=== PATIENT | male | born 1950 | race Caucasian/White ===

== ENCOUNTER 2016-09-08 05:34 | Day surgery (SDC) | payer MEDICARE, OTHER ==
[2016-09-06 17:03] LABS: BASOPHILS 1.1 %; BASOPHILS ABSOLUTE 0.09 10/3/uL (0.0-0.16); EOSINOPHILS 5.1 %; EOSINOPHILS ABSOLUTE 0.43 10/3/uL (0.0-0.53); IMMATURE GRANULOCYTES 0.2 %; IMMATURE GRANULOCYTES ABSOLUTE 0.02 10/3/uL (0.0-0.11); LYMPHOCYTES 31.1 %; LYMPHOCYTES ABSOLUTE 2.65 10/3/uL (0.67-4.30); MEAN CORPUS HGB CONC 32.6 g/dL (32.0-36.0); MEAN CORPUSCULAR HEMOGLOB 31.1 pg (26.0-34.0); MEAN PLATELET VOLUME 10.2 fL (9.2-13.0); MONOCYTES 9.3 %; MONOCYTES ABSOLUTE 0.79 10/3/uL (0.21-1.20); NEUTROPHILS 53.2 %; NEUTROPHILS ABSOLUTE 4.53 10/3/uL (2.02-8.40); PLATELET COUNT 197 10/3/uL (150-400); WHITE BLOOD CELLS 8.5 10/3/uL (4.5-10.5)
[2016-09-06 17:04] LABS: HEMATOCRIT 43.5 % (40.0-51.0); HEMOGLOBIN 14.2 g/dL (13.6-17.8); MANUAL DIFF NO %; MEAN CORPUSCULAR VOLUME 95.4 fL (80-100); RED CELL COUNT 4.56 10/6/uL (4.7-6.1)
[2016-09-06 17:09] LABS: INTERNATIONAL NORMAL RATI 1.5 UNITS (-)
[2016-09-06 17:16] LABS: A/G RATIO 1.2 (0.7-1.9); ALBUMIN 3.8 G/DL (3.5-5.0); ALKALINE PHOSPHATASE 71 U/L (45-117); BUN (BLOOD UREA NITROGEN) 60 MG/DL (6-23); CALCIUM, SERUM 8.7 MG/DL (8.5-10.4); CHLORIDE, SERUM 104 MMOL/L (96-112); CO2 (CARBON DIOXIDE) 26 MMOL/L (24-34); CREATININE 3.74 MG/DL (0.70-1.30); GFR AFRICAN AMERICAN 18 ML/MIN (>=60); GFR NON AFRICAN AMERICAN 16 ML/MIN (>=60); GLOBULIN 3.3 G/DL (2.5-4.1); GLUCOSE, SERUM 91 MG/DL (60-99); POTASSIUM, SERUM 4.2 MMOL/L (3.5-5.3); SGOT(AST) 21 U/L (5-40); SGPT(ALT) 25 U/L (5-65); SODIUM, SERUM 140 MMOL/L (135-148); TOTAL BILIRUBIN 0.3 MG/DL (0-1.2); TOTAL PROTEIN 7.1 G/DL (6.0-8.5)
[2016-09-06 17:32] LABS: ASCORBIC ACID (UR NOT ORDER) NEG (NEG); BILIRUBIN, URINE NEGATIVE (NEG); KETONE, URINE NEGATIVE (NEG); LEUKOCYTE ESTERASE(NOT OR LARGE (NEG)
[2016-09-06 17:33] LABS: WBC (NOT ORDERED) (RFLEX) > 182 (0-5)
--- NOTE | ~2016-09-08 | OP ---
Record Of Operation [facility] [address] [place]. [address] NAME: ALICE NASCIMENTO : 46 STATUS : [facility]#: [id number] AGE: 66 ADM/REG DATE : 09/08/16 MR#: [id number] REPORT SERV DATE: 09/09/16 DICTATED BY: ALICE TIAN DATE: 09/08/16 REPORT STATUS : Draft TRANSCRIBED BY: MODL DATE: 09/08/16 DATE OF PROCEDURE: 09/08/2016 PREOPERATIVE DIAGNOSIS: Right knee parapatellar ganglion cyst. POSTOPERATIVE DIAGNOSIS: Right knee parapatellar ganglion cyst. PROCEDURE: Right knee ganglion cyst excision. SURGEON: Rachid Tian M.D. ADDRESS CHANGE CLERK: See chart. PROCEDURE IN DETAIL: The patient was taken to the operating room and placed supine on the table in normal fashion without incident. Gentle IV sedation was induced. Local anesthetic was infiltrated around a palpable fluid-filled sac, that was extremely tender to palpation, anteromedial knee, next to the patellar tendon. Sharp dissection was made after sterile prep and drape, and it was ellipsed out and seem to be ellipsed out in its entirety. This appeared to be a synovial sac, but appear to be very well contained and well circumscribed. It was approximately 3 x 1 cm. This was excised in its entirety, sent to Pathology. Copious irrigation, wound was closed. The patient was awakened and discharged without incident. WTB/MISHA Rachid Tian M.D. / [id number] CC: Gregory Granados M.D.
[~2016-09-08 05:34] MED LIST: APRES25 PO; APRES50 PO; ASAB PO; BETHAN25B PO; BLOOD PRESSURE MED; CENTRUM PO; CORDARONE PO; COUMADIN4 MG PO; EZFE 200200 MG PO; FERROUS SULF325 M1 PO; FISH OIL; FISH OIL 500 M1 EACH PO; FISH OIL OTC PO; FISH-EPA1000 MG PO; FLOMAX4 PO; Fish Oil; IMDUR60 PO; ISMO20 MG PO; ISORDTAB5 PO; JANTOVEN1 MG PO; JANTOVEN4 MG PO; L20 PO; LOP25 PO; MULTIVITAMI1 PO; PACERONE200 MG PO; PEP20 PO; PRAVACHOL40 MG PO; RED YEAS1 PO; ROCALTROL 0.0.25 MCG PO; SB325 PO; SODBICAR10 PO; SPIRO25 PO; VITD PO; Z100 PO
[2016-09-08 06:30] LABS: INTERNATIONAL NORMAL RATI 1.2 UNITS (-)
[2016-09-08 06:31] LABS: PROTIME (NOT ORD) 15.2 SEC (12.0-14.5)
== END 2016-09-08 18:23 | disposition home or self-care (01) ==
LOC: SDC 05:34
PROVIDERS: Specialist
PROC: 0YBF0ZZ Excision of Right Knee Region, Open Approach (ICD-10-PCS; principal; 2016-09-08 06:45)
DX: D18.09 Hemangioma of other sites (principal); I48.91 Unspecified atrial fibrillation; I10 Essential (primary) hypertension; Z87.442 Personal history of urinary calculi; Z95.810 Presence of automatic (implantable) cardiac defibrillator; Z79.899 Other long term (current) drug therapy; Z79.01 Long term (current) use of anticoagulants; Z79.82 Long term (current) use of aspirin; Z88.8 Allergy status to other drugs, medicaments and biological substances; Z88.0 Allergy status to penicillin; Z91.041 Radiographic dye allergy status
CPT/HCPCS: 71020; 80053; 81001; 85025; 85610; 87077; 87086; 87186; 88304; 93005; J3010; J3370